=== PATIENT | female | born 1950 | race Caucasian/White ===

== ENCOUNTER → 2017-08-04 | Day surgery (SDC) | payer OTHER ==
[2017-07-28 11:34] VITALS: BMI 46.0
[~2017-08-04] MED LIST: ACETAMINOPHEN 325 MG TABLET (FP) PO PRN; ACETYLCHOLINE 1:100 INTRA-OCUL 20 MG/2 ML KIT ONE; BSS (NA/CA/MG/K) BALANCED SALT SOLUTION OPHTH SOLN 15 ML BOTTLE ONE; BUPIVACAINE HCL/PF 0.5% (5MG/ML) 10 ML VIAL ONE; CARBACHOL 0.01% INTRA-OCULAR 1.5 ML VIAL ONE; KETOROLAC TROMETHAMINE 0.5% 5 ML BOTTLE OPTHALMIC OD SCH; LIDOCAINE HCL 2% JELLY 10 ML CARTRIDGE ONE; LIDOCAINE HCL/PF 2% SDV 5ML VIAL ONE; MIDAZOLAM HCL 2 MG/2 ML SINGLE DOSE VIAL ONE; PROPOFOL 20 ML ONE
[2017-08-04] MEDS: KETOROLAC TROMETHAMINE 0.5% 5 ML BOTTLE OPTHALMIC OD SCH ×5 (07:45→08:05)
[2017-08-04] MEDS: PHENYLEPHRINE 2.5% OPHTH SOLN 15 ML BOTTLE ONE ×5 (07:45→08:05)
[2017-08-04] MEDS: CYCLOPENTOLATE HCL 1% OPHTH SOLN 2 ML BOTTLE ONE ×5 (07:45→08:05)
[2017-08-04] MEDS: TROPICAMIDE 1% OPHTH SOLN 15 ML BOTTLE ONE ×5 (07:45→08:05)
[2017-08-04] MEDS: GENTAMICIN SULFATE 0.3% OPHTHALMIC (EYE DROPS) 5ML BOTTLE ONE ×2 (07:45→08:05)
[2017-08-04 10:51] VITALS: TEMP 97.5
[2017-08-04 11:12] VITALS: BP 131/53; PULSE 66
--- NOTE | 2017-08-04 17:52 | OP ---
DATE OF OPERATION: 08/04/2017 TITLE OF PROCEDURE: Planned extracapsular cataract extraction and phacoemulsification through a miotic pupil with a lens implant of the right eye. SURGEON: Tomasz Alicea MD RESERVATIONS MANAGER SURGEON: Nilda Peguero MD ANESTHESIA: Local standby. PROPAGATOR: Liza Malik MD COMPLICATIONS: None. PREOPERATIVE DIAGNOSES: Mature cataract, right eye; pupillary miosis, right eye. POSTOPERATIVE DIAGNOSES: Mature cataract, right eye; pupillary miosis, right eye. FINDINGS AND PROCEDURE: After successful peribulbar anesthesia was given in the operating room, the patient was prepped and draped in the usual manner to expose the right eye. Tegaderm strips and lid speculum inserted, and the microscope brought into position over the right eye. A superior fornix-based flap was then fashioned for 12 mm using Sebastian scissor and 0.12 forceps, and hemostasis achieved by wet field cautery. A limbal groove was then fashioned for 3 mm with a crescent blade and dissected anterior into clear cornea. Then, a 3-mm blade was used to enter the anterior chamber. Then, under Viscoat, a 360-degree anterior capsulotomy was performed, and the leaflet removed from the eye. Phacoemulsification of the entire nucleus was then done under bimanual technique through a very small miotic pupil using multiple injections of Viscoat, the nucleus which was very adherent to the epinucleus which was adherent to the posterior capsule. This was followed by irrigation and aspiration of all cortical material, leaving an intact posterior capsule and a red reflex present. Provisc was injected in the posterior chamber to deepen the posterior capsule, and then, the implant was inspected carefully with the microscope, found to be free of defects, debris, and flaws and then folded and placed in the Provisc-filled cartridge, and the cartridge placed in the injector, and then, the implant was injected into the eye such that the inferior haptic was in the inferior capsular bag and the superior haptic in the superior capsular bag and rotated in a horizontal position with a Sinskey hook. The Provisc was aspirated out, replaced with Miochol, Miostat, and BSS, and the wounds were closed with a single interrupted 2-0 Ethilon suture, tested for leakage. None was found. The conjunctival-tenon flap was then reapproximated, and at this point, the implant was fixated in the capsule bag, centrally located, with a round pupil and intact posterior capsule and a red reflex present. Topical Betoptic S and Maxitrol ophthalmic solutions were placed as was polymyxin B, bacitracin ophthalmic ointment, and then, the Steri-Strips and lid speculum were removed from the lids. The lids were closed and a patch and shield placed on the eye. The patient was then discharged from the operating room to the recovery area in good condition, having tolerated the procedure well. TOMASZ ALICEA M.D. [id number]
== END | disposition home or self-care (01) ==
LOC: FASU 07:20
PROVIDERS: ATTEND Ophthalmology
PROC: 08RJ3JZ Replacement of Right Lens with Synthetic Substitute, Percutaneous Approach (ICD-10-PCS; principal; 2017-08-04 09:48)
DX: H25.89 Other age-related cataract (principal); H57.03 Miosis

== ENCOUNTER 2017-09-15 11:02 | Day surgery (SDC) | payer OTHER ==
[2017-09-03 16:37] VITALS: BMI 45.7
[~2017-09-15 11:02] MED LIST changes: -ACETYLCHOLINE 1:100 INTRA-OCUL 20 MG/2 ML KIT ONE; -BSS (NA/CA/MG/K) BALANCED SALT SOLUTION OPHTH SOLN 15 ML BOTTLE ONE; -BUPIVACAINE HCL/PF 0.5% (5MG/ML) 10 ML VIAL ONE; -CARBACHOL 0.01% INTRA-OCULAR 1.5 ML VIAL ONE; -KETOROLAC TROMETHAMINE 0.5% 5 ML BOTTLE OPTHALMIC OD SCH; -LIDOCAINE HCL 2% JELLY 10 ML CARTRIDGE ONE; -LIDOCAINE HCL/PF 2% SDV 5ML VIAL ONE; -MIDAZOLAM HCL 2 MG/2 ML SINGLE DOSE VIAL ONE; -PROPOFOL 20 ML ONE
[2017-09-15] MEDS ORDERED: TROPICAMIDE 1% OPHTH SOLN 15 ML BOTTLE ONE (11:25)
[2017-09-15] MEDS: TROPICAMIDE 1% OPHTH SOLN 15 ML BOTTLE ONE ×4 (11:30→11:50)
[2017-09-15] MEDS: KETOROLAC TROMETHAMINE 0.5% 5 ML BOTTLE OPTHALMIC ONE ×5 (11:30→11:50)
[2017-09-15] MEDS: PHENYLEPHRINE 2.5% OPHTH SOLN 15 ML BOTTLE ONE ×5 (11:30→11:50)
[2017-09-15] MEDS: GENTAMICIN SULFATE 0.3% OPHTHALMIC (EYE DROPS) 5ML BOTTLE ONE ×2 (11:30→11:45)
[2017-09-15] MEDS: CYCLOPENTOLATE HCL 1% OPHTH SOLN 2 ML BOTTLE ONE ×5 (11:30→11:50)
[2017-09-15] MEDS ORDERED: MIDAZOLAM HCL 2 MG/2 ML SINGLE DOSE VIAL ONE (12:41)
[2017-09-15 14:19] VITALS: TEMP 97.6
[2017-09-15] MEDS ORDERED: ACETAMINOPHEN 325 MG TABLET (FP) ONE (14:23)
[2017-09-15 15:31] VITALS: BP 140/66; PULSE 68
--- NOTE | 2017-09-15 17:45 | OP ---
DATE OF OPERATION: 09/15/2017 TITLE OF PROCEDURE: Planned extracapsular cataract extraction and phacoemulsification and insertion of posterior chamber lens implant, left eye. SURGEON: Tomasz Alegria MD UNIVERSITY LECTURER SURGEON: Tomasz Alegria MD ANESTHESIA: Local standby. WILTON WEAVER: Hao Malik MD COMPLICATIONS: None. PREOPERATIVE DIAGNOSIS: Cataract, left eye. POSTOPERATIVE DIAGNOSIS: Cataract, left eye. FINDINGS AT PROCEDURE: After successful peribulbar anesthesia to the left eye was given, the patient was prepped and draped in the usual manner to expose the left eye. Tegaderm strips and a lid speculum were inserted and the microscope brought in position over the left eye. A superior fornix-based flap was then fashioned for 12 mm using Sebastian scissors and 0.12 forceps, and hemostasis achieved by wet field cautery. A limbal groove was fashioned for 3 mm with a crescent blade and dissecting anterior into clear cornea. A 3-mm blade was used to enter the anterior chamber. Viscoat, a 360-degree anterior capsulotomy was performed and the leaflet removed from the eye. Phacoemulsification of the entire nucleus was then done in approximately 2 minutes' time, followed by irrigation and aspiration of all cortical material, leaving an intact posterior capsule and a red reflex present. Provisc was injected into the posterior chamber, to deepen the posterior capsule. The implant was inspected carefully with the microscope, found to be free of defects or being flawed, and irrigated thoroughly with BSS. It should be noted that the first implant had a broken haptic which was not implanted, and a second implant was then used of the same dimensions. This was fine, and this was implanted so that the inferior haptic was in the inferior capsular bag and superior haptic in the superior capsular bag and rotated in a horizontal position with the Sinskey hook. Provisc was aspirated out, replaced with Miochol and Miostat and BSS, and the wound was closed with a single interrupted 2-0 Ethilon suture and tested for leakage. None was found. The conjunctival-tenon flap was reapproximated. At this point, the implant was fixated in the capsular bag, centrally located, with a round pupil, intact posterior capsule, and red reflex present. of the conjunctival-tenon flap was reapproximated. Topical Betoptic S and Maxitrol ophthalmic suspensions were placed, as was bacitracin and polymyxin B ophthalmic ointment. The Tegaderm strips and the lid speculum were removed from the lids. The lids were closed and a patch and shield placed on the eye. The patient was then discharged from the operating room to the recovery area in good condition, having tolerated the procedure well. Samantha [id number]
== END 2017-09-15 15:35 | disposition home or self-care (01) ==
LOC: FASU 11:02
PROVIDERS: ATTEND Ophthalmology
PROC: 08RK3JZ Replacement of Left Lens with Synthetic Substitute, Percutaneous Approach (ICD-10-PCS; principal; 2017-09-15 13:16)
DX: H26.9 Unspecified cataract (principal)